=== PATIENT | female | born 2000 | race Caucasian/White ===

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

== ENCOUNTER 2024-03-22 11:37 | Emergency (ER) | payer BC | END 2024-03-22 12:33 | disposition home or self-care (01) | LOC: VM.ED 11:37 | DX: S53.402A Unspecified sprain of left elbow, initial encounter (principal); Z79.899 Other long term (current) drug therapy; W01.0XXA Fall on same level from slipping, tripping and stumbling without subsequent striking against object, initial encounter | CPT/HCPCS: 73080-LT; 99283 ==